=== PATIENT | female | born 1995 | race Caucasian/White ===

== ENCOUNTER 2019-04-10 22:45 | Emergency (ER) | payer MEDICAID ==
[~2019-04-10] VITALS: Ht 162.6 cm; Wt 73.0 kg
[2019-04-10 23:19] VITALS: BP 119/75
== END 2019-04-11 00:02 | disposition left against medical advice (07) ==
LOC: ER 22:45
DX: Z53.21 Procedure and treatment not carried out due to patient leaving prior to being seen by health care provider (principal)

== ENCOUNTER 2019-04-11 00:32 | Emergency (ER) | payer MEDICAID ==
[~2019-04-11] VITALS: Ht 162.6 cm; Wt 73.0 kg
[2019-04-11] MEDS ORDERED: FAMOTIDINE 20MG TABLET PO ONE (04:00)
[2019-04-11] MEDS ORDERED: MAGNESIUM/ALUMINUM HYDROXIDE/SIMETHICONE 30ML UDC PO ONE (04:00)
[2019-04-11] MEDS ORDERED: VISCOUS LIDOCAINE 2% 15 ML UDC PO ONE (04:00)
[2019-04-11 05:32] VITALS: BP 120/68
== END 2019-04-11 05:36 | disposition home or self-care (01) ==
LOC: ER 00:32
DX: K21.9 Gastro-esophageal reflux disease without esophagitis (principal); K29.70 Gastritis, unspecified, without bleeding
CPT/HCPCS: 99284